=== PATIENT | male | born 1945 | race Caucasian/White ===

== ENCOUNTER → 2016-04-21 | Outpatient (CLI) | payer MEDICARE | LOC: US 14:41 | DX: N18.9 Chronic kidney disease, unspecified (principal); N27.0 Small kidney, unilateral ==

== ENCOUNTER → 2016-05-12 | Outpatient (CLI) | payer MEDICARE | LOC: LAB 08:55 | PROVIDERS: Family Medicine | DX: N18.9 Chronic kidney disease, unspecified (principal) | CPT/HCPCS: 36415; 80048; 81001 ==

== ENCOUNTER 2016-07-21 08:35 | Emergency (ER) | payer MEDICARE ==
[2016-07-21 09:18] LABS: HEMOGLOBIN 14.5 gm/dl (14.0-17.5); RED BLOOD COUNT 4.6 M/UL (4.20-5.50)
== END 2016-07-21 12:10 | disposition home or self-care (01) ==
LOC: ER1 08:35
PROVIDERS: Family Medicine
DX: R55 Syncope and collapse (principal); R42 Dizziness and giddiness; S01.112A Laceration without foreign body of left eyelid and periocular area, initial encounter; S00.01XA Abrasion of scalp, initial encounter; S50.311A Abrasion of right elbow, initial encounter; I10 Essential (primary) hypertension; Z95.1 Presence of aortocoronary bypass graft; Z79.02 Long term (current) use of antithrombotics/antiplatelets; Z79.82 Long term (current) use of aspirin; Z79.899 Other long term (current) drug therapy; Z23 Encounter for immunization
CPT/HCPCS: 36415; 70450; 71010; 73080; 80053; 82550; 82553; 83874; 84484; 85025; 90471; 90715; 93005; 99285